=== PATIENT | male | born 1935 | race Caucasian/White ===

== ENCOUNTER 2023-06-06 09:22 | Outpatient (AMB) | payer MEDICARE, OTHER, SELFPAY ==
--- NOTE | 2023-06-06 09:29 | A.OFFVIS_ITS ---
Intake Vital Signs 3 06/06/23 09:35 Height 5 ft 8 in Weight 183 lb 8 oz BMI 27.9 BP 175/74 H Blood Pressure Location Lt brachial Position Sitting Pulse 59 Intake Visit Reasons: [facility] Intake Note: Patient is seen in office for evaluation and treatment of a right inguinal hernia. Pt c/o: admits to tenderness in the right groin, denies lump, swollen, pain, was scheduled to have the hernia fix at [facility] but due to equipment was push back to 07/2023 self refer Machine Plug Shaper Required: No Accompanied by: Self / Same As Patient Allergies Penicillins Allergy (Mild, Verified 06/06/23 09:41) Rash HPI HPI Comments 2 History of Present Illness0 Details 87-year-old male patient presenting for evaluation of a right inguinal hernia. He reports a previous history of a left inguinal hernia repaired at an outside institution approximately 4-5 years ago. He now notes some pain and discomfort in the right groin with some swelling. Recent physical examination confirmed presence of a right inguinal hernia. He denies nausea, vomiting, fever, chills, diarrhea, or constipation. He denies bleeding per rectum as well. He presents today to discuss possible repair of the right inguinal hernia. [facility] Medical History (Updated 06/06/23 @ 09:58 by Jaswinder Valentin MD) Barretts esophagus Surgical History (Updated 06/06/23 @ 09:39 by ALESSIO Keller) History of left inguinal hernia repair Family History (Updated 06/06/23 @ 09:39 by ALESSIO Keller) Father Lung cancer Sister Melanoma Social History Alcohol intake: never Patient Tobacco Use Status: Never used Tobacco Review of Systems Const All systems reviewed & are unremarkable except as noted in HPI and below Denies chills, Denies fever(s), Denies headache(s), Denies poor appetite and Denies weakness ENT Denies headache(s) Card Denies chest pain, Denies irregular heart rhythm, Denies palpitations and Denies dyspnea Resp Denies cough, Denies excessive phlegm production and Denies dyspnea GI Denies abdominal pain, Denies bloating, Denies change in bowel habits, Denies constipation, Denies heartburn, Denies diarrhea, Denies nausea and Denies vomiting Denies difficulty urinating and Denies urinary frequency Musc Denies back pain, Denies muscle weakness and Denies numbness Skin/Breast Denies changing lesions and Denies unusual bruising Neuro Denies headache(s), Denies numbness, Denies paresthesias and Denies weakness Psych Denies anxiety and Denies depression Endo Denies palpitations He/Lymph Denies lymphadenopathy Physical Exam Const General: cooperative and no acute distress Nutritional Appearance: well nourished Orientation/consciousness: patient oriented x3 Limitations: no limitations HEENT Head: Yes normocephalic and Yes atraumatic Ears: hearing grossly normal bilaterally Resp Effort & Inspection: normal respiratory effort, no audible wheezes, no cough and no respiratory distress Cardio Jugular venous distension: no JVD GI Other: Patient examined in the standing position with Valsalva maneuvers. An easily identified right inguinal hernia is identified which is reducible with light pressure. There is no tenderness elicited reduction. A possible incision is noted in the right groin. No left inguinal hernias appreciated. Inspection: Yes normal to inspection Palpation (GI): Soft to palpation, nontender, no guarding and not rigid Abdomen image: 2 1. Reducible right inguinal hernia Skin Other: Warm, dry, no rash Neuro General: patient oriented x3 Extrem General: Yes no clubbing, cyanosis or edema Assessment & Plan Assessment & Plan (1) Reducible right inguinal hernia: Code(s): K40.90 - Unilateral inguinal hernia, without obstruction or gangrene, not specified as recurrent Plan 87-year-old male patient presenting with a reducible right inguinal hernia which causes occasional discomfort but no nausea, vomiting, fever or chills. He is requesting repair of this right inguinal hernia and after discussion of the procedure, risks, and alternatives, consents to the repair of right inguinal hernia with mesh. This will be scheduled as a short-stay surgery at his earliest convenience. Coding Level of Care Code New Pt Level 4 (75155) Diagnoses Reducible right inguinal hernia K40.90
[2023-06-06 09:35] VITALS: BP 175/74; PULSE 59; BMI 27.9
== END 2023-06-06 10:10 | disposition home or self-care (01) ==
PROVIDERS: PCP Family Medicine; Visit Provider Surgery
DX: K40.90 Unilateral inguinal hernia, without obstruction or gangrene, not specified as recurrent (principal)
CPT/HCPCS: 99204

== ENCOUNTER → 2023-06-06 09:22 | Outpatient (BNVA) | payer MEDICARE, OTHER, SELFPAY | PROVIDERS: PCP Family Medicine; Visit Provider Surgery | DX: K40.90 Unilateral inguinal hernia, without obstruction or gangrene, not specified as recurrent (principal) | CPT/HCPCS: 99202 ==

== ENCOUNTER 2023-07-01 06:45 | Day surgery (SDC) | payer MEDICARE, OTHER, SELFPAY ==
[2023-06-27 07:56] VITALS: BMI 27.8
--- NOTE | 2023-06-28 09:05 | HO.ANESPROP2 ---
Documented by User: Marah Hui NP 06/28/23 09:09 HPI - Anesthesia Eval Consult details Narrative: 87yo M for REDUCIBLE Hernia Repair Inguinal with mesh PMFSH Active Problems Active Problems: All Active Problems (Updated 06/06/23 @ 09:58 by Jaswinder Valentin MD) Reducible right inguinal hernia (Acute) Barretts esophagus (Acute) Past Medical History Medical History Barretts esophagus Family History Family History Father Lung cancer Sister Melanoma Surgical History Surgical History (Updated 07/01/23 @ 08:44 by Maude Boone MD) H/O colonoscopy History of left inguinal hernia repair Social History Social History Alcohol intake: never Patient Tobacco Use Status: Former Tobacco user Are you DNR?: No Advance Directives: No Advance Directives Information Provided: Yes Nutrition Risks: No Nutritional Risk Meds Allergies Allergy/AdvReac Type Severity Reaction Status Date / Time Penicillins Allergy Mild Rash Verified 06/06/23 09:41 Home Medications Medication Instructions Recorded Confirmed Last Taken Type omeprazole 40 mg capsule,delayed 40 mg PO DAILY 06/06/23 Unknown History release rosuvastatin 5 mg tablet 5 mg PO DAILY 06/06/23 Unknown History Exam Height,Weight and Vital Signs: Height 5 ft 8 in Weight 83.007 kg Assessment and Plan Assessment Anesthesia Assessment: Chart Reviewed Documented by User: Maude Boone MD 07/01/23 08:48 PMFSH Active Problems Active Problems: All Active Problems (Updated 07/01/23 @ 08:11 by Maude Boone MD) Reducible right inguinal hernia (Acute) Barretts esophagus (Acute) Advanced age Barretts esophagus/ GERD Hypercholesterolemia 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 Past Medical History Medical History Barretts esophagus Family History Family History Father Lung cancer Sister Melanoma Family history of problems with anesthesia: No Surgical History Surgical History (Updated 07/01/23 @ 08:44 by Maude Boone MD) H/O colonoscopy History of left inguinal hernia repair History of Problems with Anesthesia: No Social History Social History Alcohol intake: never Patient Tobacco Use Status: Former Tobacco user Are you DNR?: No Advance Directives: No Advance Directives Information Provided: Yes Nutrition Risks: No Nutritional Risk Meds Allergies Allergy/AdvReac Type Severity Reaction Status Date / Time Penicillins Allergy Mild Rash Verified 06/06/23 09:41 Home Medications Medication Instructions Recorded Confirmed Last Taken Type omeprazole 40 mg capsule,delayed 40 mg PO DAILY 06/06/23 Unknown History release rosuvastatin 5 mg tablet 5 mg PO DAILY 06/06/23 Unknown History Exam Height,Weight and Vital Signs: Height 5 ft 8 in Weight 83.007 kg Vital Signs Temp Pulse Resp BP Pulse Ox O2 Del Method 07/01/23 08:28 98.1 F 69 18 156/86 H 96 Room Air Airway Mallampati Class: II TM Dist: >3cm Neck ROM: Full Loose/Missing/Broken Teeth: No (Implants intact. Denies broken, loose, missing teeth) Heart: RRR Lungs: CTAB Assessment and Plan Assessment Anesthesia Assessment: Anesthesia Plan Discussed Final Anesthetic Review Family History of Problems with Anesthesia: No History of Problems with Anesthesia: No NPO: Yes ASA Class: II Final Preanesthetic Review: No Changes in Pt Med Stat, Meds/Allgs Chart Reviewed, Consent Obtained/Reviewed and Anes Risks/Benef Reviewed Patient Risk: Low Procedure Risk: Low Assessment/Block/Sedation in SS: Assess/Block/Sedation-SS Anesthetic Plan Anesthetic Plan: GA Disposition: Standard PACU
[2023-07-01] VITALS (7 sets, daily range): BP systolic 145–158; BP diastolic 66–88; PULSE 52–69; RESP 16–18; TEMP 36.6–36.7; O2SAT 96–98; BMI 28.0
--- NOTE | 2023-07-01 08:31 | MHC.SHP ---
Pre-Procedural Eval Section A Date of Service: 07/01/23 The patient is an INPATIENT: No Changes since office visit: Yes Patient answered all questions; No Cold of Flu in the past 2 weeks, No New Medical Problems and No Changes in Medication The History & Physical has been completed within 30 days and I have reviewed it.: Yes Section B Chief Complaint: Unilateral inguinal hernia, without obstruction or Allergies: Allergies Allergy/AdvReac Type Severity Reaction Status Date / Time Penicillins Allergy Mild Rash Verified 06/06/23 09:41 Plan Diagnosis/Plan: Unchanged I have reviewed the history and physical and performed a pertinent physical examination on my patient. No changes have occurred unless specified. Time Spent With Patient Time: Total time managing care of this patient today ____ minutes.
--- NOTE | 2023-07-01 08:42 | PC.NURSE ---
author requested dr. danielle to assess rash that is begins below umbilicus area and uptowards chest. patient denies pain/itching. no open areas. patient stated he used chlorhexadine antibacterial wipes this a.m. that were given to him by another hospital. doctor stated that prepping in OR would be completed with betadine. ok to proceed. no interventions at this time.
--- NOTE | 2023-07-01 09:44 | W.PM.OPN ---
Operative Note Operative Note Date of Service: 07/01/23 Narrative: Preoperative diagnosis: Right inguinal hernia, direct, reducible Postoperative diagnosis: Same Procedure: Repair of right inguinal hernia with mesh Surgeon: Jaswinder Valentin MD Manager Lab: Yuko Pemberton PA-C Anesthesia: General LMA Indications for procedure: 87-year-old male patient presenting with a palpable lump in the right groin which increases in size with lifting and straining and reduces the supine position. On examination patient has a palpable right inguinal hernia which increases with Valsalva maneuvers but is easily reducible. Operative findings: Large direct right inguinal hernia Specimen: None Estimated blood loss: Less than 2 mL Complications: None Procedure details: Patient was brought to the OR placed in a supine position. After administering general anesthesia patient's abdomen was prepped with Betadine and draped in a sterile fashion. A surgical time-out was called the consent confirmed. Patient received preoperative antibiotics and Venodyne boots were in place. Local anesthesia was infiltrated over the right inguinal ligament. Incision was then made in the same location with the scalpel carried out through subcutaneous tissue, past Miguel's fascia and up to the external oblique aponeurosis. Additional local was then infiltrated below the aponeurosis. This was then incised with a scalpel wide with the Metzenbaum scissors. The spermatic cord was then dissected free from the surrounding inguinal canal using blunt dissection. This was retracted using a Niyah drain. A large direct inguinal hernia was immediately identified in the floor. No indirect hernia could be identified. Fibers of the internal oblique and transversalis aponeurosis were then sized and a preperitoneal space dissected using an open Ray-Miguel sponge. A large PHS mesh was then obtained and the circular underlie deployed within the preperitoneal space. The overlay was then secured to the pubic tubercle, conjoined tendon, and shelving edge of the inguinal ligament using 0 Polysorb suture. A slit was made in the mesh and the mesh wrapped around the spermatic cord at the internal ring. This was then secured to the shelving edge using the 0 Polysorb suture. The internal ring was tight enough to allow passage of a only the tip of the index finger. The remaining lateral pr menjivar of the mesh was then placed below the external oblique aponeurosis. Wounds were then irrigated with saline solution and suctioned dry. External oblique aponeurosis was then reapproximated using a running 2-0 Polysorb suture. 8 mL of Zenrelef was then infiltrated below the external oblique aponeurosis. Miguel's fascia and dermis were then reapproximated using interrupted 3-0 Polysorb sutures. Skin was closed using a running subcuticular 4-0 Polysorb suture. Steri-Strips, 2 x 2 gauze and Tegaderm were then applied. The patient tolerated the procedure well. Sponge, instrument, and needle counts reported as correct. The patient was transferred to PACU in stable condition.
== END 2023-07-01 11:25 | disposition home or self-care (01) ==
PROVIDERS: PCP Family Medicine; Visit Provider Surgery
PROC: (CPT 49505; principal; 2023-07-01 08:40)
DX: K40.90 Unilateral inguinal hernia, without obstruction or gangrene, not specified as recurrent (principal); K22.70 Barrett's esophagus without dysplasia; E78.00 Pure hypercholesterolemia, unspecified; Z79.899 Other long term (current) drug therapy; Z88.0 Allergy status to penicillin; Z98.890 Other specified postprocedural states; Z87.891 Personal history of nicotine dependence
CPT/HCPCS: 49505; C1781; C9088; J0665; J1100; J2405; J2704; J3010; J3371

== ENCOUNTER → 2023-07-01 06:45 | Outpatient (BNV) | payer MEDICARE, OTHER, SELFPAY | PROVIDERS: PCP Family Medicine; Visit Provider Surgery | DX: K40.90 Unilateral inguinal hernia, without obstruction or gangrene, not specified as recurrent (principal) | CPT/HCPCS: 49505 ==

== ENCOUNTER → 2023-07-03 10:47 | Outpatient (BNVA) | payer MEDICARE, OTHER, SELFPAY | PROVIDERS: PCP Family Medicine; Visit Provider Surgery | DX: Z48.00 Encounter for change or removal of nonsurgical wound dressing (principal) | CPT/HCPCS: 99211 ==

== ENCOUNTER 2023-07-11 11:18 | Outpatient (AMB) | payer MEDICARE, OTHER, SELFPAY ==
--- NOTE | 2023-07-11 11:27 | MHC.OFFVIS ---
Intake Vital Signs 07/11/23 11:35 Height 5 ft 8 in Weight 186 lb BMI 28.3 BP 170/79 H Blood Pressure Location Lt brachial Position Sitting Pulse 61 Intake Visit Reasons: S/P RIH repair w/ mesh Intake Note: Patient is seen in office for post op assessment post right inguinal hernia repair. Pt c/o: denies any concerns at the time of visit surgery: 07/01/23 Call Center Analyst Required: No Accompanied by: Self / Same As Patient Allergies chlorhexidine Allergy (Mild, Verified 07/11/23 11:34) Rash Penicillins Allergy (Mild, Verified 07/11/23 11:34) Rash Medication List - Last Reconciled 07/11/23 by Jaswinder Valentin MD omeprazole 40 mg PO DAILY oxycodone 5 mg PO Q6H PRN rosuvastatin 5 mg PO DAILY HPI HPI Comments History of Present Illness Details 87-year-old male patient returning 1 week following repair of a right inguinal hernia with mesh. He tolerated the procedure well but does note some swelling and bruising in the penis and scrotum. He denies nausea, vomiting, fever or chills. His bowels are normoactive as well. [facility] Medical History Barretts esophagus Surgical History Hx of right inguinal hernia repair (07/01/23) H/O colonoscopy History of left inguinal hernia repair Family History Father Lung cancer Sister Melanoma Social History Alcohol intake: never Patient Tobacco Use Status: Former Tobacco user Physical Exam Vital Signs: Last Vital Signs Pulse 61 07/11/23 11:35 BP 170/79 H 07/11/23 11:35 BMI result Body Mass Index 28.3 Const General: no acute distress Nutritional Appearance: well nourished Orientation/consciousness: patient oriented x3 Resp Effort & Inspection: normal respiratory effort GI Other: Incision in the right groin is clean, dry, and intact. No hernia noted with Valsalva maneuvers. Very mild ecchymosis noted around the incision. Skin Other: Warm, dry, no rash Neuro General: patient oriented x3 Assessment & Plan Assessment & Plan (1) Reducible right inguinal hernia: Code(s): K40.90 - Unilateral inguinal hernia, without obstruction or gangrene, not specified as recurrent Plan Patient returns 1 week following repair of a right inguinal hernia with mesh. His wounds are clean, dry, and intact without redness or discharge. There is no evidence of hernia recurrence at this time. He should continue to avoid lifting greater than 10 lb and return in 1 month for follow-up examination. Coding Level of Care Code Global (00227) Diagnoses Reducible right inguinal hernia K40.90
[2023-07-11 11:35] VITALS: BP 170/79; PULSE 61; BMI 28.3
== END 2023-07-11 11:45 | disposition home or self-care (01) ==
PROVIDERS: PCP Family Medicine; Visit Provider Surgery
DX: K40.90 Unilateral inguinal hernia, without obstruction or gangrene, not specified as recurrent (principal)
CPT/HCPCS: 99024

== ENCOUNTER → 2023-07-11 11:18 | Outpatient (BNVA) | payer MEDICARE, OTHER, SELFPAY | PROVIDERS: PCP Family Medicine; Visit Provider Surgery | DX: Z48.815 Encounter for surgical aftercare following surgery on the digestive system (principal); Z87.19 Personal history of other diseases of the digestive system | CPT/HCPCS: 99212 ==

== ENCOUNTER 2023-08-09 09:52 | Outpatient (AMB) | payer MEDICARE, OTHER, SELFPAY ==
--- NOTE | 2023-08-09 09:52 | A.OFFVIS_ITS ---
Intake Vital Signs 08/09/23 10:03 Height 5 ft 8 in Weight 184 lb BMI 28.0 BP 181/84 H Blood Pressure Location Lt brachial Position Sitting Pulse 59 Intake Visit Reasons: 1 mth follow up RIH repair w/ mesh Intake Note: Patient is seen in office for one month follow up visit, post right inguinal hernia repair. Pt c/o: area is healing as expected, area is swollen at times Special Machine Stitcher Required: No Accompanied by: Self / Same As Patient Allergies chlorhexidine Allergy (Mild, Verified 08/09/23 09:53) Rash Penicillins Allergy (Mild, Verified 08/09/23 09:53) Rash Medication List - Last Reconciled 08/09/23 by Jaswinder Valentin MD omeprazole 40 mg PO DAILY rosuvastatin 5 mg PO DAILY HPI HPI Comments History of Present Illness Details 87-year-old male patient returning 1 month following repair of a right inguinal hernia with mesh performed on 07/01/2023. He tolerated the procedure well returns today for wound check. He denies any pain, redness or discharge from the incision. [facility] Medical History Barretts esophagus Surgical History Hx of right inguinal hernia repair (07/01/23) H/O colonoscopy History of left inguinal hernia repair Family History Father Lung cancer Sister Melanoma Social History Alcohol intake: never Patient Tobacco Use Status: Former Tobacco user Physical Exam Vital Signs: Last Vital Signs Pulse 59 08/09/23 10:03 BP 181/84 H 08/09/23 10:03 BMI result Body Mass Index 28.0 Const General: no acute distress Nutritional Appearance: well nourished Orientation/consciousness: patient oriented x3 Resp Effort & Inspection: normal respiratory effort GI Other: Incision in the right groin is clean, dry, and intact. No hernia noted with Valsalva maneuvers. No further ecchymosis is identified. Skin Other: Warm, dry, no rash Neuro General: patient oriented x3 Assessment & Plan Assessment & Plan (1) Reducible right inguinal hernia: Code(s): K40.90 - Unilateral inguinal hernia, without obstruction or gangrene, not specified as recurrent Plan 87-year-old male patient returning 1 month following repair of a right i nguinal hernia with mesh. He tolerated the procedure well and his wounds are healing nicely. There is no evidence of recurrent hernia Or wound infection. He may resume normal activity without restrictions and should follow up as needed. Coding Level of Care Code Global (49048) Diagnoses Reducible right inguinal hernia K40.90
[2023-08-09 10:03] VITALS: BP 181/84; PULSE 59; BMI 28.0
== END 2023-08-09 10:07 | disposition home or self-care (01) ==
PROVIDERS: PCP Family Medicine; Visit Provider Surgery
DX: K40.90 Unilateral inguinal hernia, without obstruction or gangrene, not specified as recurrent (principal)
CPT/HCPCS: 99024

== ENCOUNTER → 2023-08-09 09:52 | Outpatient (BNVA) | payer MEDICARE, OTHER, SELFPAY | PROVIDERS: PCP Family Medicine; Visit Provider Surgery | DX: K40.90 Unilateral inguinal hernia, without obstruction or gangrene, not specified as recurrent (principal) | CPT/HCPCS: 99212 ==

== ENCOUNTER 2023-09-19 10:14 | Outpatient (AMB) | payer MEDICARE, OTHER, SELFPAY ==
--- NOTE | 2023-09-19 10:22 | MHC.OFFVIS ---
Intake Vital Signs 09/19/23 10:23 Height 5 ft 8 in Weight 188 lb 2 oz BMI 28.6 BP 183/81 H Blood Pressure Location Lt brachial Position Sitting Pulse 67 Intake Visit Reasons: questions regarding hernia repair Intake Note: Patient is seen in office for questions regarding hernia repair on 07/01/23. Pt c/o: denies any concerns post hernia repair, wants Doctor to verify if area is healing properly, lately feels the penis is irritated and would like to see if its related to post surgical changes Airconditioning Engineer Required: No Accompanied by: Self / Same As Patient Allergies chlorhexidine Allergy (Mild, Verified 09/19/23 10:23) Rash Penicillins Allergy (Mild, Verified 09/19/23 10:23) Rash Medication List - Last Reconciled 09/19/23 by Jaswinder Valentin MD omeprazole 40 mg PO DAILY rosuvastatin 5 mg PO DAILY HPI HPI Comments History of Present Illness Details Mr. Ruano returns for postop check of his right inguinal hernia repair. He noted some swelling in the head of the penis and was concerned. He denies any bleeding or discharge from the incision and generally feels well. [facility] Medical History Barretts esophagus Surgical History Hx of right inguinal hernia repair (07/01/23) H/O colonoscopy History of left inguinal hernia repair Family History Father Lung cancer Sister Melanoma Social History Alcohol intake: never Patient Tobacco Use Status: Former Tobacco user Physical Exam Const General: no acute distress Resp Effort & Inspection: normal respiratory effort GI Other: Well-healed right inguinal incision with some surrounding postoperative change/edema of the skin extending into the penile skin. No erythema is appreciated. No hernias noted with Valsalva maneuvers. No tenderness to palpation. Inspection: Yes normal to inspection Palpation (GI): Soft to palpation, nontender and no guarding Skin General skin exam: no rashes or lesions noted Assessment & Plan Assessment & Plan (1) Reducible right inguinal hernia: Code(s): K40.90 - Unilateral inguinal hernia, without obstruction or gangrene, not specified as recurrent Plan 87-year-old male patient returning for postop check. Normal postoperative changes are identified on examination. There is no evidence of hernia recurrence or infection. He may continue to resume normal activities. He should follow up as needed. Coding Level of Care Code Est Pt Level 3 (31589) Global (51310) Diagnoses Reducible right inguinal hernia K40.90
[2023-09-19 10:23] VITALS: BP 183/81; PULSE 67; BMI 28.6
== END 2023-09-19 10:24 | disposition home or self-care (01) ==
PROVIDERS: PCP Family Medicine; Visit Provider Surgery
DX: K40.90 Unilateral inguinal hernia, without obstruction or gangrene, not specified as recurrent (principal)
CPT/HCPCS: 99024

== ENCOUNTER → 2023-09-19 10:14 | Outpatient (BNVA) | payer MEDICARE, OTHER, SELFPAY | PROVIDERS: PCP Family Medicine; Visit Provider Surgery | DX: K40.90 Unilateral inguinal hernia, without obstruction or gangrene, not specified as recurrent (principal) | CPT/HCPCS: 99212 ==

== ENCOUNTER 2023-12-27 09:21 | Outpatient (AMB) | payer MEDICARE, OTHER, SELFPAY ==
--- NOTE | 2023-12-27 09:28 | MHC.OFFVIS ---
Vital Signs 12/27/23 09:29 Height 5 ft 8 in Weight 182 lb BMI 27.7 BP 135/65 Blood Pressure Location Rt brachial Position Sitting Pulse 58 Intake Visit Reasons: ? incisional pain Intake Note: This patient presents for an assessment for incisional pain, history of right inguinal hernia repair 07/01/2023. Patient c/o; reports incisional discomfort when wearing seatbelt or when bending over to tie shoes. Research Nutritionist Required: No Accompanied by: Self / Same As Patient Allergies chlorhexidine Allergy (Mild, Verified 12/27/23 09:35) Rash Penicillins Allergy (Mild, Verified 12/27/23 09:35) Rash Medication List - Last Reconciled 12/27/23 by Jaswinder Valentin MD omeprazole 40 mg PO DAILY rosuvastatin 5 mg PO DAILY HPI Comments Details: Patient returns for evaluation of right groin pain after undergoing a repair of right inguinal hernia on 07/01/2023 using a large PHS mesh. He describes the pain more as a discomfort rather than pain noted mainly with bending as when tying his shoes. He denies feeling any lump and is unsure if this is normal but is requesting re-examination. Denies nausea, vomiting, and changes in his bowel habits. [facility] Medical History Barretts esophagus Surgical History Hx of right inguinal hernia repair (07/01/23) H/O colonoscopy History of left inguinal hernia repair Family History Father Lung cancer Sister Melanoma Social History Alcohol intake: never Patient Tobacco Use Status: Former Tobacco user Review of Systems Const All systems reviewed & are unremarkable except as noted in HPI and below Denies chills, Denies fever(s) and Denies poor appetite GI Denies abdominal pain, Denies bloating, Denies change in bowel habits, Denies constipation, Denies heartburn, Denies diarrhea, Denies nausea and Denies vomiting Skin/Breast Denies changing lesions and Denies unusual bruising Physical Exam Const General: no acute distress Nutritional Appearance: well nourished Orientation/consciousness: patient oriented x3 Resp Effort & Inspection: normal respiratory effort, no audible wheezes, no cough and no respiratory distress GI Other: Well-healed right inguinal incision with some scar retraction. Examination in the standing position with Valsalva maneuvers revealed no palpable hernia. Minimal tenderness was noted with deep palpation. Examination of the left groin revealed no evidence of recurrent left inguinal hernia. Skin Other: Warm, dry, no rash Neuro General: patient oriented x3 Assessment & Plan Assessment & Plan (1) Reducible right inguinal hernia: Code(s): K40.90 - Unilateral inguinal hernia, without obstruction or gangrene, not specified as recurrent Category: Medical Plan 88-year-old male patient status post repair of right inguinal hernia with mesh. Examination today revealed no evidence of hernia recurrence. His wounds are clean and intact. There is no evidence of a Neuroma formation or infection. He should continue normal activity without restrictions and should follow up as needed. Coding Level of Care Code Est Pt Level 3 (43644) Diagnoses Reducible right inguinal hernia K40.90
[2023-12-27 09:29] VITALS: BP 135/65; PULSE 58; BMI 27.7
== END 2023-12-27 09:40 | disposition home or self-care (01) ==
PROVIDERS: PCP Family Medicine; Visit Provider Surgery
DX: K40.90 Unilateral inguinal hernia, without obstruction or gangrene, not specified as recurrent (principal)
CPT/HCPCS: 99213

== ENCOUNTER → 2023-12-27 09:21 | Outpatient (BNVA) | payer MEDICARE, OTHER, SELFPAY | PROVIDERS: PCP Family Medicine; Visit Provider Surgery | DX: Z09 Encounter for follow-up examination after completed treatment for conditions other than malignant neoplasm (principal); Z87.19 Personal history of other diseases of the digestive system | CPT/HCPCS: 99212 ==